=== PATIENT | male | born 1965 | race Caucasian/White ===

== ENCOUNTER 2016-04-23 14:51 | Emergency (ER) | payer MEDICAID ==
[~2016-04-23] VITALS: Ht 167.6 cm; Wt 72.5 kg
[2016-04-23 14:59] VITALS: Ht 167.6 cm; Wt 72.5 kg
--- NOTE | 2016-04-23 15:37 | ERA ---
ER Documentation Chief Complaint Date/Time DATE: 04/23/16 TIME: 15:32 Chief Complaint BIB FOR [facility]EL[facility] , FEELING DPRESSED , HITS HIMSELF HPI Patient is a 51-year-old male who is brought in by his for evaluation. She states that he has a hernia that she would like to be looked at however he is here for other symptoms as well. He admits to me that he talks to the TV and he feels like the TV talks back to him. He states he does hear voices and that they tell him not to speak to other people. They do not tell him to hurt himself or hurt other people. He does not have any visual hallucinations according to him. He states he does not have any desire to hurt himself or hurt others. According to the she was told that he might have dementia from a prior head injury but he never followed up in that evaluation. He supposedly has never admitted to the auditory hallucinations to anyone else. He currently denies any complaints such as chest pain, shortness of breath, fever, congestion, sore throat, otalgia, headache, abdominal pain, nausea, vomiting, diarrhea, dysuria, hematuria, paresthesias, or focal weakness. He states his hernia is not painful and not causing him any trouble. He does not want to be here. The remainder review systems are negative. ROS All systems reviewed and are negative except as per history of present illness. PMhx/Soc Hx Alcohol Use: No Hx Substance Use: No Hx Tobacco Use: Yes Smoking Status: Current every day smoker Physical Exam Vitals Vital Signs Date Time Temp Pulse Resp B/P Pulse Ox O2 Delivery O2 Flow Rate FiO2 04/23/16 15:16 80 16 140/87 98 Room Air 04/23/16 14:59 98.0 82 18 137/81 98 Physical Exam Const: [] Well-developed well-nourished male lying on the bed. He appears to be reluctant to speak to me. He does answer my questions. Head: Atraumatic normocephalic Eyes: Normal Conjunctiva ENT: Normal External Ears, Nose and Mouth. Neck: Full range of motion..~ No meningismus. Resp: Clear to auscultation bilaterally Cardio: Regular rate and rhythm, no murmurs Abd: Soft, non tender, non distended. Normal bowel sounds Skin: No petechiae or rashes Back: No midline or flank tenderness Ext: No cyanosis, or edema Neur: Awake and alert oriented 3, GCS of 15, nonfocal, moves all extremities equally Psych: Flat affect, appears suspicious exam reveals a right inguinal hernia which is easily reducible and nontender Result Diagram: 04/23/16 1545 04/23/16 1545 Results 24 hrs Laboratory Tests Test 04/23/16 15:39 04/23/16 15:45 Bedside Glucose 318mg/dL Acetaminophen Level < 10.0ug/ml Alanine Aminotransferase (ALT/SGPT) 31IU/L Albumin 4.0g/dl Albumin/Globulin Ratio 1.37 Alkaline Phosphatase 117IU/L Anion Gap 17 Aspartate Amino Transf (AST/SGOT) 22IU/L Basophils # 0.010^3/ul Basophils % 0.3% Blood Urea Nitrogen 13mg/dl Calcium Level 9.6mg/dl Carbon Dioxide Level 24mmol/L Chloride Level 103mmol/L Creatinine 0.56mg/dl Direct Bilirubin 0.00mg/dl Eosinophils # 0.110^3/ul Eosinophils % 2.0% Ethyl Alcohol Level < 10.0mg/dl Globulin 2.90g/dl Glucose Level 320mg/dl Hematocrit 41.7% Hemoglobin 15.1g/dl Indirect Bilirubin 0.6mg/dl Lymphocytes # 1.510^3/ul Lymphocytes % 25.9% Mean Corpuscular Hemoglobin 30.8pg Mean Corpuscular Hemoglobin Concent 36.2g/dl Mean Corpuscular Volume 85.1fl Mean Platelet Volume 10.4fl Monocytes # 0.310^3/ul Monocytes % 5.1% Neutrophils # 3.910^3/ul Neutrophils % 66.4% Nucleated Red Blood Cells # 0.010^3/ul Nucleated Red Blood Cells % 0.0/100WBC Platelet Count 35578^3/UL Potassium Level 3.9mmol/L Red Blood Count 4.9010^6/ul Red Cell Distribution Width 12.8% Salicylates Level < 1.0mg/dl Sodium Level 140mmol/L Total Bilirubin 0.6mg/dl Total Protein 6.9g/dl White Blood Count 5.910^3/ul Current Medications Medications (Trade) Dose Ordered Sig/[place] Route PRN Reason Start Time Stop Time Status Last Admin Dose Admin Insulin Human Regular (Humulin R) 5 unit ONCE ONCE IV 04/23/16 16:30 04/23/16 16:31 DC 04/23/16 16:11 Procedures/MDM Differential includes but is not limited to untreated schizophrenia, psychotic disorder, brain tumor, dementia with psychotic features, rule out organic syndrome, easily reducible right inguinal hernia EKG: Rate/Rhythm: Normal Sinus Rhythm at 75 bpm, no evidence of acute ischemia, no old EKG available for comparison QRS, ST, T-waves: No changes consistent w/ acute ischemia Impression: No evidence of ischemia or arrhythmia CT of the head does not reveal any acute intracranial process per the radiologist Chest x-ray does not reveal any acute cardiopulmonary process per the radiologist I spoke with the tele-psych physician who agreed that the patient needed further treatment. He has been involuntarily committed to have further psychiatric treatment. 1725: The patient has no change in his behavior. He is stable for transfer when a facility is available. Departure Diagnosis: Primary Impression: Psychotic disorder Qualified Code: F29 - Psychosis, unspecified psychosis type Additional Impressions: Hernia, inguinal, right Diabetes mellitus Qualified Code: E11.9 - Type 2 diabetes mellitus without complication, without long-term current use of insulin Condition: Stable MAYKEL MOONEY Apr 23, 2016 15:37
[2016-04-23 15:52] LABS: ADD SCAN DIFF NO
[2016-04-23 15:55] LABS: BASOPHILS % 0.3 % (0.0-2.0); EOSINOPHILS # 0.1 10^3/ul (0.0-0.5); HEMATOCRIT 41.7 % (42.0-52.0); HEMOGLOBIN 15.1 g/dl (14.0-18.0); LYMPHOCYTES # 1.5 10^3/ul (0.8-2.9); LYMPHOCYTES % 25.9 % (15.0-51.0); MEAN CORPUSCULAR HEMOGLOBIN 30.8 pg (29.0-33.0); MEAN CORPUSCULAR HGB CONC 36.2 g/dl (32.0-37.0); MEAN CORPUSCULAR VOLUME 85.1 fl (82.0-101.0); MEAN PLATELET VOLUME 10.4 fl (7.4-10.4); MONOCYTE # 0.3 10^3/ul (0.3-0.9); MONOCYTES % 5.1 % (0.0-11.0); NEUTROPHIL # 3.9 10^3/ul (1.6-7.5); NEUTROPHILS % 66.4 % (39.0-77.0); PLATELET COUNT 269 10^3/UL (140-415); RED CELL DISTRIBUTION WIDTH 12.8 % (11.5-14.5); WHITE BLOOD COUNT 5.9 10^3/ul (4.8-10.8)
[2016-04-23 16:11] LABS: CHLORIDE 103 mmol/L (97-110); POTASSIUM 3.9 mmol/L (3.5-5.1); SODIUM 140 mmol/L (135-144)
[2016-04-23 16:13] LABS: ALBUMIN/GLOBULIN RATIO 1.37; ALKALINE PHOSPHATASE 117 IU/L (42-121); ANION GAP 17 (8-16); ASPARTATE AMINO TRANSFERASE 22 IU/L (15-46); BILIRUBIN,INDIRECT 0.6 mg/dl (0-1.1); BILIRUBIN,TOTAL 0.6 mg/dl (0.2-1.3); CARBON DIOXIDE 24 mmol/L (21-31); CREATININE 0.56 mg/dl (0.61-1.24); TOTAL PROTEIN 6.9 g/dl (6.1-8.1)
[2016-04-23 16:14] LABS: ALANINE AMINOTRANSFERASE 31 IU/L (13-69); BLOOD UREA NITROGEN 13 mg/dl (7-20); CALCIUM 9.6 mg/dl (8.4-10.2); GLUCOSE 320 mg/dl (70-220)
[2016-04-23 16:16] LABS: ACETAMINOPHEN < 10.0 ug/ml (10.0-30.0); ETHANOL < 10.0 mg/dl; SALICYLATE < 1.0 mg/dl (5.0-30.0)
--- NOTE | 2016-04-23 16:26 | RADRPT ---
PROCEDURE: XR Chest. CLINICAL INDICATION: Cough. Altered mental status. TECHNIQUE: Single frontal view. COMPARISON: None. FINDINGS: The lungs are clear. The heart size is normal. There is no pleural effusion. There is no pneumothorax. IMPRESSION: 1. Normal chest radiograph. RPTAT: QQ .Roger Barbosa MD, MD Date Time Electronically viewed and signed by .Roger Barbosa MD, MD on 04/23/2016 16:25 .R/
[2016-04-23] MEDS ORDERED: INSULIN REGULAR, HUMAN 100 UNIT/1 ML 3ML VIAL IV ONE (16:30)
--- NOTE | 2016-04-23 16:37 | RADRPT ---
PROCEDURE: CT Brain without contrast. CLINICAL INDICATION: Neurologic deficit TECHNIQUE: A CT of the brain was performed on multidetector high-resolution CT scanner utilizing a xial sections from the skull base through the vertex without contrast. One or more of the following dose reduction techniques were used: Automated exposure control, Adjustment of the mA and/or kV acc ording to patient size, and/or use of iterative reconstruction technique. DOSE: CTDI = 44 mGy and the DLP = 720 mGy-cm. COMPARISON: None available FINDINGS: No acute intracranial hemorrhage, significant mass effect or midline shift. The sauceda-white different iation is grossly preserved. The ventricles are normal in size for age. No significant opacification of the visualized paranasal sinuses or mastoids. IMPRESSION: No acute intracranial hemorrhage or significant mass effect. RPTAT: AA .Tony Lau MD, MD Date Time Electronically viewed and signed by .Tony Lau MD, on 04/23/2016 16:37 .T/
--- NOTE | 2016-04-23 16:51 | PSY ---
Date/Time of Note Date/Time of Note DATE: 04/23/16 TIME: 19:49 Psychiatric Subjective Eval Subjective Evaluation Patient location: emergency Chief Complaint: BIB FOR EVAL , FEELING DPRESSED , HITS HIMSELF Reason for consult: depression, hearing voices History of present illness The patient is a 50 yo male with no psych hx per him and his (the was present during the interview and this note includes all info). Per report, pt was normal (no psych sxs) until 2 months ago when he began talking to himself, talking about AH (voices) that command him. Paranoia, agitation, aggressiveness including with . Pt has also become depressed. he is functioning at home but barely as his life is completely controlled by psychotic sxs and the CAH. Pt has no insight, denies any psych sxs at all, whenever was asked a question simply said that his only problem is his inguinal hernia, would not even acknowledge psych sxs. Denies SI. The reports the patient is almost completely involved in his pscyhotic sxs, and again aggressive (has not yet physically harmed her or others but has quickly become more an more aggressive and psychotic). They rpeort pt has no medical follow up of any sort and has always refused and sort of psych or medical follow up. past Psych Hx; as above. No ho psych treatment. No suicide attempts. reports pt used to use cocaine and methamphetamine but not for 5 years. PMHx: They report only inguinal hernia Meds: denies All: denies Hospitalization: no Social History Marital status: Psychiatric Objective Eval Mental Status Examination: Appearance: Disheveled, Bizarre Eye Contact: Fair Psychomotor Activity: Agitated Behavior: Guarded Speech: Disorganized AFFECT: Flat Mood: Depressed, Irritable Though Process: Loose Thought Content: Delusions Suicidal: No Homicidal: No On 72 hour hold: Yes Orientation: x4 Cognition: Alert Insight: Severe Judgement: Impared Attention Span: Distractible (pt is responding to internal stimuli, and is disheveled) Laboratory Results Laboratory Tests Test 04/23/16 15:39 04/23/16 15:45 Bedside Glucose 318mg/dL Acetaminophen Level < 10.0ug/ml Alanine Aminotransferase (ALT/SGPT) 31IU/L Albumin 4.0g/dl Albumin/Globulin Ratio 1.37 Alkaline Phosphatase 117IU/L Anion Gap 17 Aspartate Amino Transf (AST/SGOT) 22IU/L Basophils # 0.010^3/ul Basophils % 0.3% Blood Urea Nitrogen 13mg/dl Calcium Level 9.6mg/dl Carbon Dioxide Level 24mmol/L Chloride Level 103mmol/L Creatinine 0.56mg/dl Direct Bilirubin 0.00mg/dl Eosinophils # 0.110^3/ul Eosinophils % 2.0% Ethyl Alcohol Level < 10.0mg/dl Globulin 2.90g/dl Glucose Level 320mg/dl Hematocrit 41.7% Hemoglobin 15.1g/dl Indirect Bilirubin 0.6mg/dl Lymphocytes # 1.510^3/ul Lymphocytes % 25.9% Mean Corpuscular Hemoglobin 30.8pg Mean Corpuscular Hemoglobin Concent 36.2g/dl Mean Corpuscular Volume 85.1fl Mean Platelet Volume 10.4fl Monocytes # 0.310^3/ul Monocytes % 5.1% Neutrophils # 3.910^3/ul Neutrophils % 66.4% Nucleated Red Blood Cells # 0.010^3/ul Nucleated Red Blood Cells % 0.0/100WBC Platelet Count 89220^3/UL Potassium Level 3.9mmol/L Red Blood Count 4.9010^6/ul Red Cell Distribution Width 12.8% Salicylates Level < 1.0mg/dl Sodium Level 140mmol/L Total Bilirubin 0.6mg/dl Total Protein 6.9g/dl White Blood Count 5.910^3/ul HANDY HADDAD Apr 23, 2016 16:51
[2016-04-23 18:08] LABS: THYROID STIMULATING HORMONE 1.18 MIU/L (0.465-4.680)
[2016-04-24 06:04] VITALS: RESP 16; TEMP 98
--- NOTE | 2016-04-24 13:14 | PSY ---
Date/Time of Note Date/Time of Note DATE: 04/24/16 TIME: 16:14 Psychiatric Subjective Eval Subjective Evaluation Patient location: emergency Chief Complaint: BIB FOR EVAL , FEELING DPRESSED , HITS HIMSELF Reason for consult: depression, hearing voices History of present illness Date/Time of Note Date/Time of Note Date/Time of Note DATE: 04/23/16 TIME: 19:14 Psychiatric Subjective Eval Psychiatric Subjective Eval Consent Pt consented to telemedicine: Yes Subjective Evaluation Patient location: emergency Chief Complaint: BIB FOR EVAL , FEELING DPRESSED , HITS HIMSELF Reason for consult: depression, hearing voices History of present illness The patient is a 50 yo male with no psych hx per him and his (the was present during the interview and this note includes all info). Per report, pt was normal (no psych sxs) until 2 months ago when he began talking to himself, talking about AH (voices) that command him. Paranoia, agitation, aggressiveness including with . Pt has also become depressed. he is functioning at home but barely as his life is completely controlled by psychotic sxs and the CAH. Pt has no insight, denies any psych sxs at all, whenever was asked a question simply said that his only problem is his inguinal hernia, would not even acknowledge psych sxs. Denies SI. The reports the patient is almost completely involved in his pscyhotic sxs, and again aggressive (has not yet physically harmed her or others but has quickly become more an more aggressive and psychotic). They rpeort pt has no medical follow up of any sort and has always refused and sort of psych or medical follow up. past Psych Hx; as above. No ho psych treatment. No suicide attempts. reports pt used to use cocaine and methamphetamine but not for 5 years. PMHx: They report only inguinal hernia Meds: denies All: denies Hospitalization: no Social History Marital status: Psychiatric Objective Eval Psychiatric Objective Eval Mental Status Examination: Appearance: Disheveled, Bizarre, Other Eye Contact: Fair Psychomotor Activity: Agitated Behavior: Guarded, Bizarre Speech: Disorganized AFFECT: Constricted Mood: Irritable Though Process: Loose Thought Content: Delusions Suicidal: No Homicidal: No On 72 hour hold: Yes Orientation: x4 (Pt was responding to internal stimuli throughout itnerview, was odd and disheveled.) Laboratory Results Laboratory Tests Test 04/23/16 15:39 04/23/16 15:45 Bedside Glucose 318mg/dL Basophils # 0.010^3/ul Basophils % 0.3% Eosinophils # 0.110^3/ul Eosinophils % 2.0% Hematocrit 41.7% Hemoglobin 15.1g/dl Lymphocytes # 1.510^3/ul Lymphocytes % 25.9% Mean Corpuscular Hemoglobin 30.8pg Mean Corpuscular Hemoglobin Concent 36.2g/dl Mean Corpuscular Volume 85.1fl Mean Platelet Volume 10.4fl Monocytes # 0.310^3/ul Monocytes % 5.1% Neutrophils # 3.910^3/ul Neutrophils % 66.4% Nucleated Red Blood Cells # 0.010^3/ul Nucleated Red Blood Cells % 0.0/100WBC Platelet Count 95990^3/UL Red Blood Count 4.9010^6/ul Red Cell Distribution Width 12.8% White Blood Count 5.910^3/ul Assessment and Plan Assessment and Plan Assessment/Diagnosis [place] I: Psychotic do nos Recommendation/Plan Medication Management -risperidone 0.5mg bid for 2 days then 1mg bid -for mild to moderate agitation, 2mg risperidone and 2mg ativan po -for severe agitation, haloperidol 5mg IM and ativan 2mg IM and cogentin 1mg IM -rule out primarily medical problem given his age and abruptness of presentation , including labs, including tsh, b12, rpr, brain imaging -given ho etoh misuse thiamine 100mg, folate 1mg, MVI -given pt has no insight, is rapidly deterioriating, has no outpatient follow up and would likely not pursue given his lack of insight and ho not followingup , has new psychotic sxs, has command AH, and has been more aggressive towards , and is disheveled, would recommend admission 5150 -this was d/w Dr. Sampson Hospitalization: no Medical history Problems Medical Problems: (1) Diabetes mellitus Status: Acute (2) Hernia, inguinal, right Status: Acute (3) Psychotic disorder Status: Acute Allergies: Coded Allergies: No Known Allergy (Unverified , 04/23/16) Social History Marital status: Psychiatric Objective Eval Mental Status Examination: Laboratory Results Laboratory Tests Test 04/23/16 15:39 04/23/16 15:45 Bedside Glucose 318mg/dL Acetaminophen Level < 10.0ug/ml Alanine Aminotransferase (ALT/SGPT) 31IU/L Albumin 4.0g/dl Albumin/Globulin Ratio 1.37 Alkaline Phosphatase 117IU/L Anion Gap 17 Aspartate Amino Transf (AST/SGOT) 22IU/L Basophils # 0.010^3/ul Basophils % 0.3% Blood Urea Nitrogen 13mg/dl Calcium Level 9.6mg/dl Carbon Dioxide Level 24mmol/L Chloride Level 103mmol/L Creatinine 0.56mg/dl Direct Bilirubin 0.00mg/dl Eosinophils # 0.110^3/ul Eosinophils % 2.0% Ethyl Alcohol Level < 10.0mg/dl Globulin 2.90g/dl Glucose Level 320mg/dl Hematocrit 41.7% Hemoglobin 15.1g/dl Indirect Bilirubin 0.6mg/dl Lymphocytes # 1.510^3/ul Lymphocytes % 25.9% Mean Corpuscular Hemoglobin 30.8pg Mean Corpuscular Hemoglobin Concent 36.2g/dl Mean Corpuscular Volume 85.1fl Mean Platelet Volume 10.4fl Monocytes # 0.310^3/ul Monocytes % 5.1% Neutrophils # 3.910^3/ul Neutrophils % 66.4% Nucleated Red Blood Cells # 0.010^3/ul Nucleated Red Blood Cells % 0.0/100WBC Platelet Count 54193^3/UL Potassium Level 3.9mmol/L Red Blood Count 4.9010^6/ul Red Cell Distribution Width 12.8% Salicylates Level < 1.0mg/dl Sodium Level 140mmol/L Thyroid Stimulating Hormone (TSH) 1.180MIU/L Total Bilirubin 0.6mg/dl Total Protein 6.9g/dl Vitamin B12 Level 563pg/ml White Blood Count 5.910^3/ul HANDY HADDAD Apr 24, 2016 13:14
--- NOTE | 2016-04-24 14:29 | PSY ---
Date/Time of Note Date/Time of Note DATE: 04/24/16 TIME: 17:22 Psychiatric Subjective Eval Subjective Evaluation Patient location: emergency Chief Complaint: BIB FOR EVAL , FEELING DPRESSED , HITS HIMSELF Reason for consult: depression, hearing voices History of present illness This MD was asked to see this patient again today after seeing him yesterday as a psych sw saw him today and said he was denying everything and wants to go home. The MD saw the pt today. Story and history as yesterday. There has been no improvement. Rather, the patient's situation is worse. His inability (and 's inability ) to care for him confirmed with new diagnosis of diabetes. The patient did not respond to the MD at all today. The spoke and was also disorganized so the story was unclear. She described how there have been at least 3 people at home who have been trying to care for the patient, which has apparently nto been therapeutic. The said that she wants to take the pt to a new outpatient doctor tomorrow, though it does not appear how this will happen given that apparently the and at least three other individuals/ caretakers have been trying to do so for years without success. Given this new information, including new evidence that the supports at home are even less than previously realized, this MD continues to recommend inpatient admission. Other recs as per paulina's note (dated today as it was entered yesterday but could not be signed until today). This was discussed with Dr. Gao. Hospitalization: no Medical history Problems Medical Problems: (1) Diabetes mellitus Status: Acute (2) Hernia, inguinal, right Status: Acute (3) Psychotic disorder Status: Acute Allergies: Coded Allergies: No Known Allergy (Unverified , 04/23/16) Social History Marital status: Psychiatric Objective Eval Mental Status Examination: Laboratory Results Laboratory Tests Test 04/23/16 15:39 04/23/16 15:45 Bedside Glucose 318mg/dL Acetaminophen Level < 10.0ug/ml Alanine Aminotransferase (ALT/SGPT) 31IU/L Albumin 4.0g/dl Albumin/Globulin Ratio 1.37 Alkaline Phosphatase 117IU/L Anion Gap 17 Aspartate Amino Transf (AST/SGOT) 22IU/L Basophils # 0.010^3/ul Basophils % 0.3% Blood Urea Nitrogen 13mg/dl Calcium Level 9.6mg/dl Carbon Dioxide Level 24mmol/L Chloride Level 103mmol/L Creatinine 0.56mg/dl Direct Bilirubin 0.00mg/dl Eosinophils # 0.110^3/ul Eosinophils % 2.0% Ethyl Alcohol Level < 10.0mg/dl Globulin 2.90g/dl Glucose Level 320mg/dl Hematocrit 41.7% Hemoglobin 15.1g/dl Indirect Bilirubin 0.6mg/dl Lymphocytes # 1.510^3/ul Lymphocytes % 25.9% Mean Corpuscular Hemoglobin 30.8pg Mean Corpuscular Hemoglobin Concent 36.2g/dl Mean Corpuscular Volume 85.1fl Mean Platelet Volume 10.4fl Monocytes # 0.310^3/ul Monocytes % 5.1% Neutrophils # 3.910^3/ul Neutrophils % 66.4% Nucleated Red Blood Cells # 0.010^3/ul Nucleated Red Blood Cells % 0.0/100WBC Platelet Count 78347^3/UL Potassium Level 3.9mmol/L Red Blood Count 4.9010^6/ul Red Cell Distribution Width 12.8% Salicylates Level < 1.0mg/dl Sodium Level 140mmol/L Thyroid Stimulating Hormone (TSH) 1.180MIU/L Total Bilirubin 0.6mg/dl Total Protein 6.9g/dl Vitamin B12 Level 563pg/ml White Blood Count 5.910^3/ul HANDY HADDAD Apr 24, 2016 14:28
--- NOTE | 2016-04-24 15:02 | QN ---
Documentation Comment I was notified of this patient pending signout and psychiatric evaluation. In short this is a 51-year-old male diagnosed with diabetes and early onset dementia who is been hearing voices. The initial provider recommended psychiatric evaluation. The initial evaluation yesterday by the psychiatrist recommended a 5150 hold. The patient has never been suicidal. I believe the psychiatrist was concerned because the family was not receiving outpatient psychiatric care. However at this time the PMRT clinician came to evaluate the patient. She does not feel that the patient meets criteria for 5150 hold. She had a prolonged evaluation of the patient and discussed the care with the patient as well as the patient's . She does not feel comfortable waiting a 5150 hold given that the patient does not meet criteria. I then spoke to the psychiatrist on the case. I asked him to reevaluate the patient. He did so. He still recommends a 5150 hold but not as severely because the patient is suicidal or acutely psychotic. He is concerned that the family is unable to get the patient to an outpatient psychiatric team. I relayed this to the PMRT individual who continues to state that she cannot place the patient on a 5150 hold because the patient does not meet criteria during her evaluation. This is a difficult situation because on one hand I have a telemetry medicine psychiatrist recommending a hold but I have a PMRT provider refusing to place the patient on a hold. On my evaluation of the family and the patient the patient denies suicidality. The family states that he has never been aggressive and has never been suicidal. They feel that they can appropriately care for the patient at home. They state that they have a primary care appointment tomorrow and can help arrange for a psychiatrist evaluation as an outpatient. After speaking to the nurse caring for the patient for prolonged period of time she states that the family has been interactive and supportive. At this time I do not have an ability to hospitalize this patient in a psychiatric facility because I have an inability to place the patient on a 5150 hold. In my opinion the patient is not acutely psychotic he is not a danger to himself or his family. The family states multiple times that they feel comfortable caring for him and have been doing so for some time. They have primary care follow-up within the next 24 hours. Weighing the risks, benefits, alternatives including holding this patient against as well, sedating the patient with risk of prolonged ER hospitalization and holding I feel that the most reasonable disposition plan at this time is to let the patient go with his family. Again, the patient does not seem to be acutely psychotic does not have any suicidal thoughts or aggressive behavior. The family states they understand they can return to the emergency room at any point in time. The patient was released from the emergency room. WOOD MONTEJO MD Apr 24, 2016 15:02
[2016-04-24 15:10] VITALS: BP 131/81; PULSE 62
== END 2016-04-24 15:41 | disposition home or self-care (01) ==
LOC: E/R 14:51
DX: F29 Unspecified psychosis not due to a substance or known physiological condition (principal); K40.90 Unilateral inguinal hernia, without obstruction or gangrene, not specified as recurrent; E11.9 Type 2 diabetes mellitus without complications; F17.210 Nicotine dependence, cigarettes, uncomplicated
CPT/HCPCS: 36415; 70450; 71010; 80053; 80306; 82607; 82962; 84443; 85025; 86592; 93005; 96374; J1815; Z7502; Z7610